=== PATIENT | female | born 1995 | race Caucasian/White ===

== ENCOUNTER 2016-10-25 13:56 | Emergency (ER) | payer BC ==
[2016-10-25 14:22] VITALS: BP 108/68
--- NOTE | 2016-10-25 15:30 | UC ---
Throat Pain/Nasal Alex HPI - HPI Summary HPI Summary: TWO DAYS OF COUGH, HEADACHE, FEVER. NO SORE THROAT, NO ABDOMINAL PAIN. NO NECK STIFFNESS. - History of Current Complaint Chief Complaint: UCRespiratory Stated Complaint: SINUS ISSUE Time Seen by Provider: 10/25/16 14:37 Hx Obtained From: Patient Hx Last Menstrual Period: 10/25/16 Onset/Duration: Gradual Onset, Lasting Days, Still Present Severity: Moderate Cough: Nonproductive Associated Signs & Symptoms: Positive: Fever - 101F - Epiglottits Risk Factors Epiglottis Risk Factors: Negative - Allergies/Home Medications Allergies/Adverse Reactions: Allergies Allergy/AdvReac Type Severity Reaction Status Date / Time No Known Allergies Allergy Verified 10/06/14 08:52 PMH/Surg Hx/FS Hx/Imm Hx Previously Healthy: Yes Endocrine History Of: Denies: Diabetes, Thyroid Disease Cardiovascular History Of: Denies: Cardiac Disorders, Hypertension Respiratory History Of: Denies: COPD, Asthma GI/ History Of: Denies: Ulcer - Surgical History Surgical History: None - Family History Known Family History: Negative: Respiratory Disease - Social History Occupation: Employed Full-time Lives: With Family Alcohol Use: None Substance Use Type: None Smoking Status (MU): Never Smoked Tobacco - Immunization History Most Recent Influenza Vaccination: 2014 Vaccination Up to Date: Yes Review of Systems Constitutional: Fever - 101 Skin: Negative Eyes: Negative ENT: Negative Respiratory: Cough Cardiovascular: Negative Gastrointestinal: Negative Genitourinary: Negative Motor: Negative Neurovascular: Negative Musculoskeletal: Negative Neurological: Headache - MILD, RESOLVED Psychological: Negative All Other Systems Reviewed And Are Negative: Yes Physical Exam Triage Information Reviewed: Yes Appearance: Well-Appearing, No Pain Distress, Well-Nourished Vital Signs: Initial Vital Signs Temp 98.9 F 10/25/16 14:19 Pulse 90 10/25/16 14:19 Resp 16 10/25/16 14:19 BP 108/68 10/25/16 14:19 Pulse Ox 100 10/25/16 14:19 Vital Signs Reviewed: Yes Eye Exam: Normal ENT Exam: Normal ENT: Positive: Normal ENT inspection, Hearing grossly normal, Pharynx normal, TMs normal Dental Exam: Normal Neck exam: Normal Neck: Positive: Supple, Nontender Respiratory Exam: Normal Respiratory: Positive: Chest non-tender, Lungs clear, Normal breath sounds, No respiratory distress, No accessory muscle use Cardiovascular Exam: Normal Cardiovascular: Positive: RRR, No Murmur, Pulses Normal, Brisk Capillary Refill Abdominal Exam: Normal Abdomen Description: Positive: Nontender, No Organomegaly Musculoskeletal Exam: Normal Musculoskeletal: Positive: Strength Intact, ROM Intact, No Edema Neurological Exam: Normal Psychological Exam: Normal Psychological: Positive: Normal Response To Family Skin Exam: Normal Throat Pain/Nasal Course/Dx - Differential Dx/Diagnosis Differential Diagnosis/HQI/PQRI: Pharyngitis, Sinusitis, Tonsillitis, URI Provider Diagnoses: UPPER RESPIRATORY INFECTION Discharge - Discharge Plan Condition: Stable Disposition: HOME Patient Education Materials: Upper Respiratory Infection (ED), Viral Syndrome ( ED) Forms: *Work Release Referrals: Hansel Abreu MD [Primary Care Provider] -
== END 2016-10-25 15:37 | disposition home or self-care (01) ==
LOC: UCEAST 13:56
DX: J06.9 Acute upper respiratory infection, unspecified (principal)
CPT/HCPCS: 87502; 99201; G0463

== ENCOUNTER 2017-02-26 14:23 | Emergency (ER) | payer BC ==
[2017-02-26 14:30] VITALS: BP 122/69
--- NOTE | 2017-02-26 14:58 | UC ---
Throat Pain/Nasal Alex HPI - HPI Summary HPI Summary: 21 y/o female presents to the urgent care c/o sore throat and productive cough and fever since yesterday. Pt reports she was Dx 2 weeks ago with bronchitis in [place]. She was Rx Z-ramona symptoms resolved after treatment, Then she returned from [place] yesterday and last night she started to feel SOB, fever and his cough is now producing a yellowish phlegm. Pt Has been taking Ibuprofen to alleviate symptoms. Pt lane chest pain, N/V/D. LMP: 02/15/2017 and states there is not possibility she is since her boyfriend is away. - History of Current Complaint Chief Complaint: UCRespiratory Stated Complaint: THROAT PAIN Time Seen by Provider: 02/26/17 14:39 Hx Obtained From: Patient Hx Last Menstrual Period: 02/13/2017 ?: No Onset/Duration: Gradual Onset, Lasting Weeks, Still Present Severity: Moderate Pain Intensity: 5 - Headache Pain Scale Used: 0-10 Numeric Cough: Productive - yellowish Associated Signs & Symptoms: Positive: Dysphagia, Sinus Discomfort, Nasal Discharge, Fever. Negative: Vomiting, Rash Related History: Seasonal Allergies - Epiglottits Risk Factors Epiglottis Risk Factors: Negative - Allergies/Home Medications Allergies/Adverse Reactions: Allergies Allergy/AdvReac Type Severity Reaction Status Date / Time seasonal allergies Allergy See Comment Uncoded 02/26/17 14:30 PMH/Surg Hx/FS Hx/Imm Hx Previously Healthy: Yes - Surgical History Surgical History: None - Family History Known Family History: Positive: None Negative: Respiratory Disease - Social History Alcohol Use: None Substance Use Type: None Smoking Status (MU): Never Smoked Tobacco - Immunization History Most Recent Influenza Vaccination: 2014 Vaccination Up to Date: Yes Review of Systems Constitutional: Fever Skin: Negative Eyes: Negative ENT: Sore Throat, Nasal Discharge, Sinus Congestion Respiratory: Shortness Of Breath, Cough - productive yellowish phlemg Gastrointestinal: Negative Genitourinary: Negative Motor: Negative Neurovascular: Negative Musculoskeletal: Negative Neurological: Negative Psychological: Negative All Other Systems Reviewed And Are Negative: Yes Physical Exam Triage Information Reviewed: Yes Appearance: Well-Appearing, No Pain Distress, Well-Nourished, Thin Vital Signs: Initial Vital Signs Temp 98.4 F 02/26/17 14:27 Pulse 107 02/26/17 14:27 Resp 18 02/26/17 14:27 BP 122/69 02/26/17 14:27 Pulse Ox 98 02/26/17 14:27 Vital Signs Reviewed: Yes Eye Exam: Normal Eyes: Positive: Conjunctiva Clear - PERRLA, EOMI, Fundi grossly ENT Exam: Normal ENT: Positive: Pharyngeal erythema, Nasal congestion, Nasal drainage - yellowish discharge, Tonsillar swelling, Other: - B/L ear canal impacted with cerumen unable to visualize TMs. Negative: Tonsillar exudate Dental Exam: Normal Dental: Positive: Cervical Lymphadenopathy Neck exam: Normal Neck: Positive: Supple, Nontender Respiratory: Positive: Chest non-tender, No respiratory distress, No accessory muscle use, Crackles - Through all RT lung. Negative: Stridor, Wheezing Cardiovascular Exam: Normal Cardiovascular: Positive: RRR, No Murmur, Pulses Normal, Brisk Capillary Refill Abdominal Exam: Normal Abdomen Description: Positive: Nontender, No Organomegaly, Soft. Negative: CVA Tenderness (R), CVA Tenderness (L) Bowel Sounds: Positive: Present Musculoskeletal Exam: Normal Musculoskeletal: Positive: Strength Intact, ROM Intact, No Edema Neurological Exam: Normal Psychological Exam: Normal Skin Exam: Normal Throat Pain/Nasal Course/Dx - Course Course Of Treatment: 21 y/o female presents to the urgent care c/o sore throat and productive cough and fever since yesterday. Hx obtained. PE abnormal findings:ENT: Positive: Pharyngeal erythema, Nasal congestion, Nasal drainage - yellowish discharge, Tonsillar swelling, Other: - B/L ear canal impacted with cerumen unable to visualize TMs. Negative: Tonsillar exudate.Respiratory: Positive Crackles - Through all RT lung. Negative: Stridor, Wheezing. Rapid strep: negative, Influeza A: positive. Chest X-ray ordered. Pt with Hx of Bronchitis x 2 weeks. SOB, fever, productive cough x 1 day. RT lung thorpe w/ crackles. Chest X-ray impression: negative. However I clinically concider Rx Doxycycline 100 mg PO x 10 days to cover Pt for Walking pneumonia. Pt also Rx Tamiflu to cover for Influenza A. Advised to increase fluid intake, rest, eat well and continue with Ibuprofen after meals prn to alleviate symptoms of fever , PALACIO. CArbamide peroxide otic Rx for cerumen impaction. Pt understood and agreed. - Differential Dx/Diagnosis Differential Diagnosis/HQI/PQRI: Influenza, Laryngitis, Otitis Media, Pharyngitis, URI, Other - pneumonia, bronchitis Provider Diagnoses: Influenza A, Pneumonia, cerumen impaction - Physician Notification/Consults Discussed Patient Care With: Fernanda Olson - DR Olson agreed with pt care and treatment Discharge - Discharge Plan Condition: Stable Disposition: HOME Prescriptions: Carbamide Peroxide 6.5% OTIC* [DEBROX 6.5% Otic*] 5 drop BOTH EARS BID #1 bottle DOXYcycline CAP(*) [DOXYcycline 100MG CAP(*)] 100 mg PO BID #20 cap Oseltamivir CAP* [Tamiflu CAP*] 75 mg PO BID #10 cap Patient Education Materials: Pneumonia (ED), Influenza (ED) Referrals: Hansel Abreu MD [Primary Care Provider] - If Needed Additional Instructions: Please take medications as instructed and finish the full course of treatment to avoid recurrent infection. Increase fluid intake, rest.If you do not improve or if symptoms worsen after the course of antibiotics, you should either follow up with your PCP or return to the urgent care for further evaluation and treatment.
--- NOTE | 2017-02-26 15:40 | RAD ---
INDICATION: Difficulty breathing, fever and headache COMPARISON: None TECHNIQUE: PA and lateral views of the chest were obtained. FINDINGS: The heart and mediastinum are normal in size and contour. The lungs are grossly clear. There is no evidence of large pleural effusion. Visualized bones are normal for the patient's age. There is no radiographic evidence of free air beneath the diaphragm IMPRESSION: No radiographic evidence of acute cardiopulmonary disease.
== END 2017-02-26 16:19 | disposition home or self-care (01) ==
LOC: UCEAST 14:23
DX: J09.X2 Influenza due to identified novel influenza A virus with other respiratory manifestations (principal); J18.8 Other pneumonia, unspecified organism; H61.23 Impacted cerumen, bilateral
CPT/HCPCS: 71020; 87502; 87651; 99212; G0463

== ENCOUNTER 2018-01-11 19:33 | Emergency (ER) | payer BC ==
--- NOTE | 2018-01-11 19:45 | UC ---
Ear Complaint HPI - HPI Summary HPI Summary: 22 year old female with ear complaint. Went to [facility] 2 days ago and given antibiotic drops. pain worsening and some brown discharge. mild ringing . no fever. no hearing loss. no improvement with the drops. - History of Current Complaint Stated Complaint: EAR COMPLAINT Time Seen by Provider: 01/11/18 19:43 Hx Obtained From: Patient Hx Last Menstrual Period: 02/13/2017 Onset/Duration: Gradual Onset Severity Initially: Mild Severity Currently: Moderate - Allergies/Home Medications Allergies/Adverse Reactions: Allergies Allergy/AdvReac Type Severity Reaction Status Date / Time seasonal allergies Allergy See Comment Uncoded 01/11/18 19:43 PMH/Surg Hx/FS Hx/Imm Hx Previously Healthy: Yes - Surgical History Surgical History: None - Family History Known Family History: Positive: None Negative: Respiratory Disease - Social History Occupation: Employed Full-time - [employer] Alcohol Use: None Substance Use Type: None Smoking Status (MU): Never Smoked Tobacco - Immunization History Most Recent Influenza Vaccination: 2014 Vaccination Up to Date: Yes Review of Systems ENT: Ear Ache Is Patient Immunocompromised?: No All Other Systems Reviewed And Are Negative: Yes Physical Exam Triage Information Reviewed: Yes Appearance: Well-Appearing, No Pain Distress, Well-Nourished Vital Signs Reviewed: Yes Eye Exam: Normal ENT Exam: Normal ENT: Positive: TM bulging - left, TM dull - left ear and also some brown wax. moderate tenderness of tragus to palpation Dental Exam: Normal Neck exam: Normal Neck: Positive: 1 Respiratory Exam: Normal Cardiovascular Exam: Normal Musculoskeletal Exam: Normal Neurological Exam: Normal Psychological Exam: Normal Skin Exam: Normal Ear Complaint Course/Dx - Course Course Of Treatment: with worsening pain and can not see complete TM will offer antibiotics . discussed irrigation / cerumen removal and she declined due to the ear pain. start amox -- she and mom aware of SE of meds. f/u with ENT if any concerns. - Differential Dx/Diagnosis Differential Diagnosis/HQI/PQRI: Otitis Externa, Otitis Media, Perforated TM, URI Provider Diagnoses: Left AOM Discharge - Sign-Out/Discharge Documenting (check all that apply): Discharge/Admit/Transfer - Discharge Plan Condition: Good Disposition: HOME Prescriptions: Amoxicillin PO (*) [Amoxicillin 875 MG (*)] 875 mg PO BID 10 Days #20 tab Patient Education Materials: Ear Infection (ED) Referrals: Hansel Abreu MD [Primary Care Provider] - If Needed Theodore Juan MD [Medical Doctor] - - Billing Disposition and Condition Condition: GOOD Disposition: HOME
[2018-01-11 19:48] VITALS: BP 101/68
== END 2018-01-11 20:19 | disposition home or self-care (01) ==
LOC: UCEAST 19:33
DX: H66.92 Otitis media, unspecified, left ear (principal)
CPT/HCPCS: 99202; G0463

== ENCOUNTER 2023-09-08 09:25 | Inpatient (IN) ==
[2023-09-08] MEDS ORDERED: Lactated Ringers 1000 ml BAG 1,000 ML IV ONE (09:42)
[2023-09-08] MEDS ORDERED: Lidocaine 1% VIAL 10 MG/ML 30 ML VIAL INJ PRN (09:42)
[2023-09-08] MEDS ORDERED: Oxytocin in LR 20,000 MILLI.UNIT/1,000 ML BAG IV SCH (09:45)
[2023-09-08 11:46] LABS: ABS Basophils 0.1 10^3/uL (0.0-0.1); ABS Lymphocytes 1.7 10^3/uL (1.0-4.8); ABS Monocytes 0.8 10^3/uL (0.0-0.9); ABS Neutrophils 10.3 10^3/uL (1.5-7.6); ABS Nucleated RBC 0.03 10^3/ul; Eosinophil % 0.3 %; Hematocrit 31.4 % (35-45); Hemoglobin 10.3 g/dL (11.5-14.3); Mean Corpuscular Hgb Conc 32.9 g/dL (31-36); Mean Platelet Volume 10.4 fL (7.5-11.2); Nucleated Red Blood Cells % 0.2 %/100WBC (0.0-0.8); Platelet Count 178 10^3/uL (150-450); Red Blood Count 3.97 10^6/uL (3.63-4.92); Red Cell Distribution Width 16.8 % (12-17); White Blood Count 12.9 10^3/uL (3.8-11.8)
[2023-09-08] MEDS: Lactated Ringers 1000 ml BAG 1,000 ML IV SCH ×2 (12:03→19:35)
[2023-09-08 12:21] LABS: Albumin 3.4 g/dL (3.2-5.2); Albumin/Globulin Ratio 1.1 (1-3); Calcium 8.6 mg/dL (8.6-10.3); Creatinine, Serum 0.87 mg/dL (0.51-0.95); Potassium 4.1 mmol/L (3.5-5.0); Total Bilirubin 0.3 mg/dL (0.2-1.0); Total Protein 6.4 g/dL (6.4-8.9); Uric Acid 6.7 mg/dL (2.3-6.6); eGFR CKD-EPI 94.2 (>60)
[2023-09-08 13:31] LABS: Urine Benzodiazepine Screen None Detected (None Detect); Urine Cannabinoids Screen None Detected (None Detect); Urine Opiates Screen None Detected (None Detect)
[2023-09-08] MEDS ORDERED: ceFOXitin 2 GM IVPREMIX 2 GM/50 ML BAG IVPB ONE (22:37)
[2023-09-08] MEDS ORDERED: Sodium Citrate/Citric Acid LIQ 15 ML UDC PO ONE (22:37)
[2023-09-08] MEDS ORDERED: Ondansetron 4 mg VIAL 2 MG/ML 2 ml VIAL ONE (22:58)
[2023-09-08] MEDS ORDERED: Morphine PF AMP (0.5MG/ML) 5 MG/10 ML AMP ONE (22:58)
[2023-09-08] MEDS ORDERED: Oxytocin 10 UNITS/ML 1 ML VIAL ONE (22:58)
[2023-09-08] MEDS ORDERED: Bupivacaine-MPF SPINAL 7.5 MG/ML - 2ML AMP ONE (23:03)
[2023-09-08] MEDS ORDERED: Dexamethasone IV 4 MG/ML VIAL 1 ml VIAL ONE (23:54)
[2023-09-08] MEDS ORDERED: Acetaminophen IV 1 GM/100ML 1,000 MG/100 ML BAG IV ONE (23:54)
[2023-09-09] MEDS ORDERED: Dibucaine 1% OINT 28.35 GM TUBE PR PRN (00:35)
[2023-09-09] MEDS ORDERED: Witch Hazel PAD JAR TOPICAL PRN (00:35)
[2023-09-09] MEDS ORDERED: Glycerin ADULT 2.4 gm SUPP PR PRN (00:35)
[2023-09-09] MEDS ORDERED: Oxytocin in LR 20,000 MILLI.UNIT/1,000 ML BAG IV SCH (00:35)
[2023-09-09] MEDS ORDERED: Naloxone 0.4 mg VIAL 0.4 mg/ml 1 ml VIAL IV PRN (00:38)
[2023-09-09] MEDS ORDERED: Scopolamine 1 mg/72hr PATCH TRANSDERM PRN (00:38)
[2023-09-09] MEDS ORDERED: Ondansetron 4 mg VIAL 2 MG/ML 2 ml VIAL IV PRN (00:38)
[2023-09-09] MEDS ORDERED: Metoclopramide 5 MG/ML VIAL (10 mg) IV PRN (00:38)
[2023-09-09] MEDS ORDERED: Naloxone 0.4 mg VIAL 0.4 mg/ml 1 ml VIAL IV PUSH PRN (00:38)
[2023-09-09] MEDS ORDERED: Acetaminophen IV 1 GM/100ML 1,000 MG/100 ML BAG IV PRN (00:38)
[2023-09-09] MEDS ORDERED: Lactated Ringers 1000 ml BAG 1,000 ML IV SCH (01:00)
[2023-09-09 01:45] LABS: Urine Appearance Clear; Urine Bilirubin Negative (Negative); Urine Blood 1+ (Negative); Urine Color Yellow; Urine Glucose Negative (Negative); Urine Ketones Negative (Negative); Urine Nitrite Negative (Negative); Urine Protein 2+(100 mg/dL) (Negative); Urine Specific Gravity 1.009 (1.002-1.030); Urine Urobilinogen Negative (Negative)
[2023-09-09 01:49] LABS: Urine Bacteria Absent (Absent); Urine Red Blood Cell 3+(>10/hpf) (Absent); Urine Squamous Epithelial Cell Present (Absent); Urine White Blood Cell Absent (Absent)
[2023-09-10 07:40] VITALS: BP 143/82
[2023-09-10 08:39] LABS: ABS Basophils 0.1 10^3/uL (0.0-0.1); ABS Eosinophils 0.1 10^3/uL (0.0-0.5); ABS Lymphocytes 2.1 10^3/uL (1.0-4.8); ABS Monocytes 0.8 10^3/uL (0.0-0.9); ABS Neutrophils 7.5 10^3/uL (1.5-7.6); ABS Nucleated RBC 0.01 10^3/ul; Eosinophil % 0.9 %; Hematocrit 24.8 % (35-45); Hemoglobin 8.2 g/dL (11.5-14.3); Lymphocyte % 19.6 %; Mean Corpuscular Hemoglobin 26.2 pg (27-33); Mean Corpuscular Volume 79.4 fL (80-97); Mean Platelet Volume 9.7 fL (7.5-11.2); Nucleated Red Blood Cells % 0.1 %/100WBC (0.0-0.8); Platelet Count 138 10^3/uL (150-450); Red Blood Count 3.12 10^6/uL (3.63-4.92); Red Cell Distribution Width 16.6 % (12-17); White Blood Count 10.5 10^3/uL (3.8-11.8)
== END 2023-09-10 18:15 | disposition home or self-care (01) | DRG 540 ==
LOC: MCHOBOUT 09:25 → MCHOB 09:52
PROVIDERS: ADMIT Midwife; ATTEND Obstetrics & Gynecology